=== PATIENT | male | born 1995 | race Caucasian/White ===

== ENCOUNTER 2024-04-28 00:51 | Emergency (ER) | payer OTHER ==
[~2024-04-28] VITALS: Ht 165.1 cm; Wt 59.0 kg
[2024-04-28 00:55] VITALS: BP 136/91; PULSE 98; RESP 16; TEMP 98.7; O2SAT 97
[2024-04-28] MEDS ORDERED: ALBU0.0912 INH (01:14)
[2024-04-28] MEDS ORDERED: FLUT1DSK2 IH (01:15)
== END 2024-04-28 01:44 | disposition home or self-care (01) ==
LOC: MED 00:51
DX: J45.901 Unspecified asthma with (acute) exacerbation (principal); Z76.0 Encounter for issue of repeat prescription; F12.90 Cannabis use, unspecified, uncomplicated; F15.90 Other stimulant use, unspecified, uncomplicated; Z79.899 Other long term (current) drug therapy
CPT/HCPCS: 99283